=== PATIENT | female | born 1935 | race Caucasian/White ===

== ENCOUNTER 2017-10-22 21:00 | Inpatient (IN) | payer MEDICARE, BC ==
[2017-10-22 22:39] VITALS: BMI 22.4
[2017-10-22] MEDS ORDERED: HYDROcodone/APAP 10-325MG 1 EACH TAB PO PRN (23:37)
[2017-10-22] MEDS ORDERED: MORPHINE SULFATE 4 MG/ML SYRINGE IVP PRN ×2 (23:38)
--- NOTE | 2017-10-23 00:09 | XR ---
EXAMINATION TYPE: XR chest 1V portable DATE OF EXAM: 10/22/2017 COMPARISON: NONE HISTORY: Preop knee fracture TECHNIQUE: Single frontal view of the chest is obtained. FINDINGS: Heart is normal. Lungs are clear. There is no heart failure. Thoracic aorta is atheromatou s. There is no pleural effusion. There are emphysematous changes in the upper lobes. IMPRESSION: Emphysema. No acute lung disease. Normal heart.
[2017-10-23 00:15] LABS: Basophils % (A) 0 %; Eosinophils # (A) 0.1 k/uL (0-0.7); Eosinophils % (A) 1 %; HCT 33.2 % (34.0-46.0); HGB 11.6 gm/dL (11.4-16.0); Lymphocytes # (A) 0.6 k/uL (1.0-4.8); Lymphocytes % (A) 9 %; MCH 29.6 pg (25.0-35.0); MCHC 35.1 g/dL (31.0-37.0); MCV 84.3 fL (80.0-100.0); Mean Platelet Volume 6.6; Monocytes # (A) 0.4 k/uL (0-1.0); Monocytes % (A) 6 %; Neutrophils # (A) 5.4 k/uL (1.3-7.7); Neutrophils % (A) 82 %; Platelet Count 241 k/uL (150-450); RBC 3.93 m/uL (3.80-5.40); RDW 13.7 % (11.5-15.5); WBC 6.6 k/uL (3.8-10.6)
[2017-10-23 00:33] LABS: Calcium 9.3 mg/dL (8.4-10.2); Potassium 3.3 mmol/L (3.5-5.1)
[2017-10-23 00:34] LABS: INR 1.1 (<1.2); Partial Thromboplastin Time 22.3 sec (22.0-30.0); Prothrombin Time 10.3 sec (9.0-12.0)
[2017-10-23] MEDS: DEXTROSE 5%-0.9% NACL 1,000 ML IV SCH ×2 (00:59→11:36)
[2017-10-23] MEDS: METOPROLOL TARTRATE 50 MG TAB PO SCH ×2 (01:39→09:22)
[2017-10-23] MEDS: PRAVASTATIN SODIUM 40 MG TAB PO SCH ×2 (01:39→21:53)
[2017-10-23] MEDS: LOSARTAN 50 MG TAB PO SCH ×3 (01:39→21:53)
[2017-10-23] MEDS: LEVOTHYROXINE 75 MCG TAB PO SCH (05:05)
[2017-10-23] MEDS ORDERED: Potassium Replacement Protocol 1 EACH MISC MISCELLANE PRN (07:11)
[2017-10-23] MEDS: IPRATROPIUM-ALBUTEROL 3 ML NEB INHALATION SCH ×2 (07:28→19:37)
[2017-10-23] MEDS ORDERED: HYDROCHLOROTHIAZIDE 25 MG TAB PO SCH (09:00)
[2017-10-23] MEDS: POTASSIUM CHLORIDE ER 20 MEQ TAB.ER PO SCH ×2 (09:21→11:35)
[2017-10-23] MEDS: PANTOPRAZOLE 40 MG TABLET PO SCH (09:21)
--- NOTE | 2017-10-23 09:27 | P.HPIM ---
History of Present Illness H&P Date: 10/23/17 Chief Complaint: Fall 81-year-old female who originally presented to [facility] after she sustained a fall at home. She was transferred to [facility] on 10/22/2017. The patient lives alone and is independent. She states she has been losing power on and off for the past week. She states her cable and phone were out when all of a sudden she heard "Evacuate Immediately". It is unknown what exactly this message was about or where it came from. Patient does not know if her cable came back on at that time and if it came from the TV. She states she usually would exit out of her garage but was unable to do so because of the power being out. She states she left her house out of a side door which has two steps. She states she fell when she was on the second step and fell onto the ground. She began to have pain and swelling in her left knee and presented to the hospital for further evaluation. She was found to have a left tibial plateu fracture and was transferred to [facility] for orthopedic evaluation. The patient has a history of hypertension, hyperlipidemia, and hypothyroidism. Surgical history included thyroidectomy and hysterectomy with removal of her uterus only. Chest x-ray: Emphysema. No acute process. Laboratory data: WBC 6.6. Hemoglobin 11.6. Platelet count 241. Sodium 134. Potassium 3.3. Chloride 94. Carbon dioxide 28. BUN 9. Creatinine 0.80. Glucose 107. Calcium 9.3. The patient was admitted to the hospital under the care of Dr. Jerez. Consultations were placed to orthopedics. Review of Systems GENERAL: Patient denies fever. Denies chills. EYES: Denies blurred vision. Denies vision changes. Denies eye pain. EARS, NOSE, MOUTH, & THROAT: Denies headache. Denies sore throat. Denies ear pain. RESPIRATORY: Denies cough. Denies shortness of breath. Denies sputum production. Denies hemoptysis. CARDIOVASCULAR: Denies chest pain or pressure. Denies palpitations. Denies arrhythmias. GASTROINTESTINAL: Denies abdominal pain. Denies diarrhea. Denies constipation. Denies nausea. Denies vomiting. Denies heartburn. Denies blood in the stool. GENITOURINARY: Denies urinary frequency. Denies burning. Denies dysuria. Denies cloudy urine. Denies blood in the urine. MUSCULOSKELETAL: Positive for pain and swelling to left knee. Denies myalgias. INTEGUMENTARY: Denies pruitis. Denies rash. PSYCHIATRIC: Positive for intermittent memory loss per patient. Denies suicidal or homicial ideations. ENDOCRINE: Denies weight change. Denies polydipsia. Denies polyuria. HEMATOLOGIC: Denies bleeding disorders. Past Medical History Past Medical History: GERD/Reflux, Hyperlipidemia, Hypertension, Thyroid Disorder Additional Past Medical History / Comment(s): Emphysema, TGN History of Any Multi-Drug Resistant Organisms: None Reported Past Surgical History: Cholecystectomy, Hysterectomy Additional Past Surgical History / Comment(s): Thyroidectomy (left with 5 % of her thyroid), Hysterectomy (only removed uterus, cyst removal from left breast. Reports that during thyroid surgery, her surgeon left 6 clips in her throat. Never removed Past Anesthesia/Blood Transfusion Reactions: Previous Problems w/ Anesthesia Additional Past Anesthesia/Blood Transfusion Reaction / Comment(s): Patient reports having difficulty waking up from surgery Smoking Status: Former smoker - Past Family History Father Additional Family Medical History / Comment(s): Emphysema Medications and Allergies Home Medications Medication Instructions Recorded Confirmed Type Amitriptyline HCl [Amitriptyline 25 mg PO QAM 10/22/17 10/22/17 History HCl] Hydrochlorothiazide 25 mg PO QAM 10/22/17 10/22/17 History Levothyroxine Sodium [Synthroid] 75 mcg PO DAILY 10/22/17 10/22/17 History Losartan Potassium [Losartan 50 mg PO BID 10/22/17 10/22/17 History Potassium] Metoprolol Tartrate [Lopressor] 50 mg PO BID 10/22/17 10/22/17 History Omeprazole [PriLOSEC] 20 mg PO AC-BRKFST 10/22/17 10/22/17 History Perphenazine [Trilafon] 4 mg PO QAM 10/22/17 10/22/17 History Pravastatin Sodium [Pravachol] 40 mg PO HS 10/22/17 10/22/17 History Allergies Allergy/AdvReac Type Severity Reaction Status Date / Time codeine AdvReac Mild Unknown Verified 10/23/17 06:50 Physical Exam Vitals: Vital Signs Temp Pulse Pulse Resp BP Pulse Ox 10/23/17 07:41 71 10/23/17 07:29 71 10/23/17 00:45 98.6 F 87 13 135/76 97 10/22/17 23:00 18 Intake and Output 10/22/17 10/23/17 10/23/17 22:59 06:59 14:59 Other: # Voids 1 Weight 61.3 kg GENERAL: This is a 81-year-old female in no apparent distress at the time of examination. Pleasant and cooperative. HEENT: Head is atraumatic, normocephalic. Pupils are equal, round, and reactive to light. Sclerae anicteric. Conjunctivae are clear. Mucus membranes of the mouth are moist. Neck is supple. RESPIRATORY: Clear to ausculation. No wheezes, rales, or rhonchi. No use of accessory muscles. Patient maintaining oxygen saturation greater than 92%on room air. No chest wall tenderness is noted on palpation or with deep breathing. CARDIOVASCULAR: Regular rate and rhythm. S1 and S2 noted. No systolic or diastolic murmur auscultated. No JVD noted. No S3 or S4 noted. GASTROINTESTINAL: No distention noted. Abdomen soft and round. Normal active bowel sounds auscultated x 4 quadrants. No pain or tenderness noted upon palpation. INTEGUMENTARY: No cyanosis. No jaundice. No rashes noted. No cellulitis noted. EXTREMITIES: Left lower extremitity remains in brace. Mild swelling and ecchymosis noted to left anterior knee and proximal tibia. 2+ peripheral pulses. No calf tenderness noted. NEUROLOGIC: Cranial nerves II-XII intact. PSYCHIATRIC: Awake, alert, and oriented X 3. Appropriate affect. Intact judgement and insight. Results CBC & Chem 7: 10/23/17 00:02 10/23/17 00:02 Labs: Abnormal Lab Results - Last 24 Hours (Table) 10/23/17 10/23/17 Range/Units 00:02 00:02 Hct 33.2 L (34.0-46.0) % Lymphocytes # 0.6 L (1.0-4.8) k/uL Sodium 134 L (137-145) mmol/L Potassium 3.3 L (3.5-5.1) mmol/L Chloride 94 L (98-107) mmol/L Glucose 107 H (74-99) mg/dL Thrombosis Risk Factor Assmnt - Choose All That Apply Any of the Below Risk Factors Present?: Yes Assessment and Plan Plan: ASSESSMENT: Left tibial plateau fracture, s/p fall from standing Hypertension Hyperlipidemia Hypothyroidism with previous thyroidectomy Hypokalemia Hypomagnesemia PLAN: Orthopedics on consult. Await recommendations and input Maintain brace to left lower extremity. Elevate on pillow. NPO until evaluated by orthopedics. Continue IV fluids Replace potassium per protocol. Recheck in AM. Replace magnesium per protocol. Recheck in a.m. Home meds as appropriate Monitor labs GI prophylaxis: Protonix 40 mg PO Daily DVT prophylaxis: Heparin 5000 units subcu Q8 hours Monitor vital signs and address as appropriate Discharge planning: Patient states she is going to stay with her son at the time of discharge. Discussed the possibility of subacute rehab with the patient. Will obtain PT/OT consult when appropriate to evaluate patient Further recommendations pending patient's course Nurse practitioner note has been reviewed by physician. Signing provider agrees with the documented findings, assessment, and plan of care.
[2017-10-23] MEDS ORDERED: Magnesium Replacement Protocol 1 EACH MISC MISCELLANE PRN (10:32)
--- NOTE | 2017-10-23 10:43 | P.CNOR ---
History of Present Illness - [facility] Consult date: 10/23/17 Requesting physician: Abraham Saunders Consult reason: fracture (Left Proximal Tibia fracture) History of present illness: Patient is a pleasant 81-year-old seen at bedside this morning in consultation for her left tibia fracture. She originally presented to [facility] after she sustained a fall at home. She states she fell forward onto the ground and onto her knee as she was exiting her garage yesterday. She began to have pain and swelling in her left knee and presented to the hospital for further evaluation. Studies were performed at [facility] including a CT and Xray of the left knee. She was found to have a left tibial plateu fracture and was transferred to [facility] for orthopedic evaluation. She is admitted to her PCP. She has no other complaints today. She denies numbness, tingling, calf pain, fever, chills, chest pain or shortness of breath. Review of Systems All systems: negative Constitutional: Denies chills, Denies fever Eyes: denies blurred vision, denies pain Ears, nose, mouth and throat: Denies headache, Denies sore throat Cardiovascular: Denies chest pain, Denies shortness of breath Respiratory: Denies cough Gastrointestinal: Denies abdominal pain, Denies diarrhea, Denies nausea, Denies vomiting Genitourinary: Denies dysuria, Denies hematuria Musculoskeletal: Denies myalgias Integumentary: Denies pruritus, Denies rash Neurological: Denies numbness, Denies weakness Psychiatric: Denies anxiety, Denies depression Endocrine: Denies fatigue, Denies weight change Past Medical History Past Medical History: GERD/Reflux, Hyperlipidemia, Hypertension, Thyroid Disorder Additional Past Medical History / Comment(s): Emphysema, TGN History of Any Multi-Drug Resistant Organisms: None Reported Past Surgical History: Cholecystectomy, Hysterectomy Additional Past Surgical History / Comment(s): Thyroidectomy (left with 5 % of her thyroid), Hysterectomy (only removed uterus, cyst removal from left breast. Reports that during thyroid surgery, her surgeon left 6 clips in her throat. Never removed Past Anesthesia/Blood Transfusion Reactions: Previous Problems w/ Anesthesia Additional Past Anesthesia/Blood Transfusion Reaction / Comm: Patient reports having difficulty waking up from surgery Smoking Status: Former smoker - Past Family History Father Additional Family Medical History / Comment(s): Emphysema Medications and Allergies Home Medications Medication Instructions Recorded Confirmed Type Amitriptyline HCl [Amitriptyline 25 mg PO QAM 10/22/17 10/22/17 History HCl] Hydrochlorothiazide 25 mg PO QAM 10/22/17 10/22/17 History Levothyroxine Sodium [Synthroid] 75 mcg PO DAILY 10/22/17 10/22/17 History Losartan Potassium [Losartan 50 mg PO BID 10/22/17 10/22/17 History Potassium] Metoprolol Tartrate [Lopressor] 50 mg PO BID 10/22/17 10/22/17 History Omeprazole [PriLOSEC] 20 mg PO AC-BRKFST 10/22/17 10/22/17 History Perphenazine [Trilafon] 4 mg PO QAM 10/22/17 10/22/17 History Pravastatin Sodium [Pravachol] 40 mg PO HS 10/22/17 10/22/17 History Allergies Allergy/AdvReac Type Severity Reaction Status Date / Time codeine AdvReac Mild Unknown Verified 10/23/17 06:50 Physical Examination Inspection of the left knee and lower extremity shows no wounds or lacerations. There is moderate swelling at the left knee and proximal tibia. There is some echymosis. There is no erythema. It is not hot to touch. No deformity. Painless ROM of hip, ankle and foot. Knee ROM not tested. Neurovascular status is intact throughout the lower extremity with motor and sensation fully intact. Calf is soft and nontender. 2+ dorsalis pedis pulse and less than 2 second cap refill is present Results CT of the left knee performed at [facility] shows a minimally to nondisplaced proximal tibia/plateau fracture. There is no dislocation or other fracture. - Labs Labs: Abnormal Lab Results - Last 24 Hours (Table) 10/23/17 10/23/17 Range/Units 00:02 00:02 Hct 33.2 L (34.0-46.0) % Lymphocytes # 0.6 L (1.0-4.8) k/uL Sodium 134 L (137-145) mmol/L Potassium 3.3 L (3.5-5.1) mmol/L Chloride 94 L (98-107) mmol/L Glucose 107 H (74-99) mg/dL H & H 10/23/17 Range/Units 00:02 Hgb 11.6 (11.4-16.0) gm/dL Hct 33.2 L (34.0-46.0) % Coagulation 10/23/17 Range/Units 00:02 INR 1.1 (<1.2) Result Diagrams: 10/23/17 00:02 10/23/17 00:02 - Diagnostic results Knee x-ray: image reviewed Knee CT: image reviewed Assessment and Plan (1) Tibia fracture Narrative/Plan: Patient and studies have been reviewed with Dr. Saunders. There is no plan for surgical intervention. Recommend that she maintain knee immobilizer and be non weightbearing with left lower extremity. Pain management, elevate and ice as needed. DVT prophylaxis. She may follow up in our office in one week. She would benefit from rehab placement. Thank you Current Visit: Yes Status: Acute Priority: Medium Code(s): S82.209A - UNSP FRACTURE OF SHAFT OF UNSP TIBIA, INIT FOR CLOS FX SNOMED Code(s): 86075493 Time with Patient: Less than 30
[2017-10-23] MEDS: PERPHENAZINE 4 MG TAB PO SCH (11:35)
[2017-10-23] MEDS: AMITRIPTYLINE HCL 25 MG TAB PO SCH (11:35)
[2017-10-23] MEDS: MAGNESIUM SULFATE-D5W PMX 1 GM in DEXTROSE/WATER 1 100ML.BAG IVPB SCH ×2 (11:39→13:19)
[2017-10-23] MEDS ORDERED: POTASSIUM CHLORIDE ER 20 MEQ TAB.ER PO STA (12:59)
--- NOTE | 2017-10-23 16:28 | P.CONS ---
History of Present Illness - Chief Complaint Walking difficulty - History of Present Illness I had the opportunity to see patient for inpatient consultation with regard to walking difficulty. She was admitted to [facility] October 22 history of fall at home and left leg or knee pain. X-ray demonstrated tibial plateau fracture. Evaluated by Dr. Saunders recommended immobilizing knee only. Chest x-ray demonstrates emphysema. PT and OT prescribed. PT reports moderate assistance for bed mobility sitting and transfers. Minimal to moderate assistance for gait 2 feet with roller walker. previous functional history as elicited patient: 81-year-old right-handed white female who is lives in one floor home alone. Retired. Describes independent with cooking, laundry, driving, standing shower and gait without device. Has 2 sons who live nearby and visit daily. History smoking remote past but doesn't smoke currently. Denies alcohol. Dr. Jerez regular doctor. Family history of cancer in mother and emphysema in father. Review of Systems Review of systems: ENT: Denies sneezes or discharge. Eyes: Denies discharge or photophobia. Cardiac: Denies chest pain or palpitation. Pulmonary: Denies cough or shortness of breath. Breast: Denies discharge or lumps. Gastrointestinal: Denies nausea, emesis, constipation, diarrhea. Genitourinary: Denies discharge or frequency. Musculoskeletal: Left leg and knee pain. Neurologic: Denies motor or sensory change. Endocrine: Denies shakes or sweats. Oncology: Denies cancers. Dermatologic: Denies rash, itching, pruritus. ALLERGY/immunology: Denies sneezes, rashes. Past Medical History Past Medical History: GERD/Reflux, Hyperlipidemia, Hypertension, Thyroid Disorder Additional Past Medical History / Comment(s): Emphysema, TGN History of Any Multi-Drug Resistant Organisms: None Reported Past Surgical History: Cholecystectomy, Hysterectomy Additional Past Surgical History / Comment(s): Thyroidectomy (left with 5 % of her thyroid), Hysterectomy (only removed uterus, cyst removal from left breast. Reports that during thyroid surgery, her surgeon left 6 clips in her throat. Never removed Past Anesthesia/Blood Transfusion Reactions: Previous Problems w/ Anesthesia Additional Past Anesthesia/Blood Transfusion Reaction / Comm: Patient reports having difficulty waking up from surgery Smoking Status: Former smoker - Past Family History Father Additional Family Medical History / Comment(s): Emphysema Medications and Allergies Home Medications Medication Instructions Recorded Confirmed Type Amitriptyline HCl [Amitriptyline 25 mg PO QAM 10/22/17 10/22/17 History HCl] Hydrochlorothiazide 25 mg PO QAM 10/22/17 10/22/17 History Levothyroxine Sodium [Synthroid] 75 mcg PO DAILY 10/22/17 10/22/17 History Losartan Potassium [Losartan 50 mg PO BID 10/22/17 10/22/17 History Potassium] Metoprolol Tartrate [Lopressor] 50 mg PO BID 10/22/17 10/22/17 History Omeprazole [PriLOSEC] 20 mg PO AC-BRKFST 10/22/17 10/22/17 History Perphenazine [Trilafon] 4 mg PO QAM 10/22/17 10/22/17 History Pravastatin Sodium [Pravachol] 40 mg PO HS 10/22/17 10/22/17 History Allergies Allergy/AdvReac Type Severity Reaction Status Date / Time codeine AdvReac Mild Unknown Verified 10/23/17 06:50 Physical Exam Vitals: Vital Signs Temp Pulse Pulse Resp BP Pulse Ox 10/23/17 14:15 97.7 F 72 16 95/58 92 L 10/23/17 09:37 98.2 F 72 16 111/62 93 L 10/23/17 07:41 71 10/23/17 07:29 71 10/23/17 00:45 98.6 F 87 13 135/76 97 10/22/17 23:00 18 Intake and Output 10/23/17 10/23/17 10/23/17 06:59 14:59 22:59 Intake Total 1170 Balance 1170 Intake: Intake, IV Titration 550 Amount Dextrose 5%-0.9% NaCl 1, 450 000 ml @ 100 mls/hr IV . Q10H [facility] Rx#:[id number] Magnesium Sulfate-D5w Pmx 100 1 gm In Dextrose/Water 1 100ml.bag @ 100 mls/hr IVPB Q1H [facility] Rx#: [id number] Oral 620 Other: # Voids 1 Skin: Atrophic, intact. General: Medium build and comfortable appearance. Head: Normocephalic, atraumatic. Eyes: Symmetric. Pupils equal round. Ears: Symmetric. Hearing within normal limits. Mouth: Clear. Neck: Supple. Carotid without bruit. Cardiac: Regular rate and rhythm. Lungs: Clear anteriorly and posteriorly. Abdomen: Soft active nontender. Extremities: Normal tone. Left leg in immobilizer. Neurological: Mental status: Alert, cooperative, pleasant. Cranial nerves: Symmetric facial tone and trapezius. Motor: Normal strength and isolation all [address] weakness and left leg, does not elevate off the bed understandably. Sensation: Intact throughout. DTRs: Symmetric and equal throughout. Mobility: Would require moderate assistance for bed mobility, at least. Results CBC & Chem 7: 10/23/17 00:02 10/23/17 12:09 Labs: Abnormal Lab Results - Last 24 Hours (Table) 10/23/17 10/23/17 10/23/17 Range/Units 00:02 00:02 00:02 Hct 33.2 L (34.0-46.0) % Lymphocytes # 0.6 L (1.0-4.8) k/uL Sodium 134 L (137-145) mmol/L Potassium 3.3 L (3.5-5.1) mmol/L Chloride 94 L (98-107) mmol/L Glucose 107 H (74-99) mg/dL Magnesium 1.5 L (1.6-2.3) mg/dL Chest x-ray: report reviewed (Chest x-ray with emphysema only.) Assessment and Plan (1) Tibia fracture Current Visit: Yes Status: Acute Priority: Medium Code(s): S82.209A - UNSP FRACTURE OF SHAFT OF UNSP TIBIA, INIT FOR CLOS FX SNOMED Code(s): 48534427 Plan: Impression: 1. Walking difficulty. 2. Left tibial plateau fracture. 3. Hypertension. 4. Dyslipidemia. 5. Hypothyroid. 6. Reflux. comments and plan: PT and OT ordered. Safety concerns anticipated in no lives alone although does have 2 supportive sons in the area. Unsure the patient has. diagnosis inpatient rehabilitation per insurance rules and guidelines. Will have to review. In any event, patient has already discussed subacute placement at [facility] and for this in fact may be better placement for her at this time, allow her a slower course of recovery.
[2017-10-23 17:47] LABS: Appearance,Urine Cloudy (Clear); Bacteria,Urine Rare /hpf; Bilirubin,Urine Negative (Negative); Blood,Urine Negative (Negative); Color,Urine Light Yellow; Glucose,Urine (UA) Negative (Negative); Ketones,Urine Negative (Negative); Leukocyte Esterase,Urine Large (Negative); Nitrite,Urine Positive (Negative); Protein,Urine Negative (Negative); RBC,Urine 4 /hpf (0-5); Specific Gravity,Urine 1.006 (1.001-1.035); Squamous Epithelial Cell,Urine <1 /hpf (0-4); Urobilinogen,Urine <2.0 mg/dL (<2.0); WBC,Urine 177 /hpf (0-5)
[2017-10-23] MEDS: HEPARIN SODIUM,PORCINE 5,000 UNIT/ML 1 ML VIAL SQ SCH ×2 (17:51→23:30)
[2017-10-23] MEDS ORDERED: LEVOFLOXACIN 750MG-D5W PMX 750 MG in DEXTROSE/WATER 1 150ML.BAG IVPB SCH (20:00)
[2017-10-24] MEDS: LEVOTHYROXINE 75 MCG TAB PO SCH (05:21)
[2017-10-24 07:40] LABS: Calcium 8.9 mg/dL (8.4-10.2); Magnesium 1.7 mg/dL (1.6-2.3); Potassium 4.2 mmol/L (3.5-5.1)
[2017-10-24] MEDS: IPRATROPIUM-ALBUTEROL 3 ML NEB INHALATION SCH ×2 (08:18→20:17)
[2017-10-24] MEDS: LOSARTAN 50 MG TAB PO SCH ×2 (08:38→21:04)
[2017-10-24] MEDS: METOPROLOL TARTRATE 25 MG TAB PO SCH (08:39)
[2017-10-24] MEDS: AMITRIPTYLINE HCL 25 MG TAB PO SCH (08:39)
[2017-10-24] MEDS: PANTOPRAZOLE 40 MG TABLET PO SCH (08:39)
[2017-10-24] MEDS: HEPARIN SODIUM,PORCINE 5,000 UNIT/ML 1 ML VIAL SQ SCH ×2 (08:39→16:09)
[2017-10-24] MEDS: PERPHENAZINE 4 MG TAB PO SCH (08:40)
--- NOTE | 2017-10-24 08:56 | P.PN ---
Subjective Progress Note Date: 10/24/17 81-year-old female who originally presented to [facility] after she sustained a fall at home. She was transferred to [facility] on 10/22/2017. The patient lives alone and is independent. She states she has been losing power on and off for the past week. She states her cable and phone were out when all of a sudden she heard "Evacuate Immediately". It is unknown what exactly this message was about or where it came from. Patient does not know if her cable came back on at that time and if it came from the TV. She states she usually would exit out of her garage but was unable to do so because of the power being out. She states she left her house out of a side door which has two steps. She states she fell when she was on the second step and fell onto the ground. She began to have pain and swelling in her left knee and presented to the hospital for further evaluation. She was found to have a left tibial plateu fracture and was transferred to [facility] for orthopedic evaluation. The patient has a history of hypertension, hyperlipidemia, and hypothyroidism. Surgical history includes thyroidectomy and hysterectomy with removal of her uterus only. Chest x-ray: Emphysema. No acute process. Laboratory data: WBC 6.6. Hemoglobin 11.6. Platelet count 241. Sodium 134. Potassium 3.3. Chloride 94. Carbon dioxide 28. BUN 9. Creatinine 0.80. Glucose 107. Calcium 9.3. The patient was admitted to the hospital under the care of Dr. Jerez. Consultations were placed to orthopedics. 10/24/2017 Patient seen and examined at the bedside. Dr. Jerez spoke with patients family yesterday who stated they thought the patient may be having syncopal episodes and had been complaining of dizziness, neither of which the patient reported yesterday in interviewing the patient. When patient was asked about this today, she states "Oh yeah, I have been been dizzy for about a week" and "its possible I passed out when I fell". Patient now reveals she has been feeling dizzy for the last week. Carotid doppler has been ordered. Urinalysis completed revealed cloudy light yellow urine, positive nitrates, large leukocyte esterase, WBC 177 , and few WBC clumps. Urine culture is pending. She was started on Levaquin 750mg IV Q24 hours. Patient was borderline hypotensive yesterday with systolic blood pressures in the 90s. Her metoprolol was decreased to 25mg daily from 50mg BID. Blood pressure this morning is 129/63. Heart rate 70-90s. Temp this morning is 99.9. Dr. Davidson was consulted to evaluate for inpatient rehab. Patient states she does not want to go to inpatient rehab or subacute rehab. She states she is going to go home and her sister is going to come stay with her and help care for her. Objective - Vital Signs Vital signs: Vital Signs Temp 99.9 F H 10/24/17 07:00 Pulse 76 10/24/17 08:18 Resp 17 10/24/17 07:00 BP 129/63 10/24/17 07:00 Pulse Ox 93 L 10/24/17 07:00 Intake & Output 10/23/17 10/24/17 10/24/17 18:59 06:59 18:59 Intake Total 1350 Output Total 100 Balance 1350 -100 Intake: Intake, IV Titration 550 Amount Dextrose 5%-0.9% NaCl 1, 450 000 ml @ 100 mls/hr IV . Q10H [facility] Rx#:[id number] Magnesium Sulfate-D5w Pmx 100 1 gm In Dextrose/Water 1 100ml.bag @ 100 mls/hr IVPB Q1H [facility] Rx#: [id number] Oral 800 Output: Urine 100 Other: Voiding Method Bedside Commode # Voids 1 - Exam GENERAL: This is a 81-year-old female in no apparent distress at the time of examination. Pleasant and cooperative. HEENT: Head is atraumatic, normocephalic. Pupils are equal, round, and reactive to light. Sclerae anicteric. Conjunctivae are clear. Mucus membranes of the mouth are moist. Neck is supple. RESPIRATORY: Clear to ausculation. No wheezes, rales, or rhonchi. No use of accessory muscles. Patient maintaining oxygen saturation greater than 92%on room air. No chest wall tenderness is noted on palpation or with deep breathing. CARDIOVASCULAR: Regular rate and rhythm. S1 and S2 noted. No systolic or diastolic murmur auscultated. No JVD noted. No S3 or S4 noted. GASTROINTESTINAL: No distention noted. Abdomen soft and round. Normal active bowel sounds auscultated x 4 quadrants. No pain or tenderness noted upon palpation. INTEGUMENTARY: No cyanosis. No jaundice. No rashes noted. No cellulitis noted. EXTREMITIES: Left lower extremitity remains in brace. Mild swelling and ecchymosis noted to left anterior knee and proximal tibia. 2+ peripheral pulses. No calf tenderness noted. NEUROLOGIC: Cranial nerves II-XII intact. PSYCHIATRIC: Awake, alert, and oriented X 3. Appropriate affect. Intact judgement and insight. - Labs CBC & Chem 7: 10/23/17 00:02 10/24/17 07:02 Labs: Abnormal Lab Results - Last 24 Hours (Table) 10/22/17 10/23/17 10/23/17 Range/Units 17:40 00:02 19:51 Sodium (137-145) mmol/L Potassium 5.2 H (3.5-5.1) mmol/L Magnesium 1.5 L (1.6-2.3) mg/dL Urine Appearance Cloudy H (Clear) Urine Nitrite Positive H (Negative) Ur Leukocyte Esterase Large H (Negative) Urine WBC 177 H (0-5) /hpf Urine WBC Clumps Few H (None) /hpf Urine Bacteria Rare H (None) /hpf 10/24/17 Range/Units 07:02 Sodium 136 L (137-145) mmol/L Potassium (3.5-5.1) mmol/L Magnesium (1.6-2.3) mg/dL Urine Appearance (Clear) Urine Nitrite (Negative) Ur Leukocyte Esterase (Negative) Urine WBC (0-5) /hpf Urine WBC Clumps (None) /hpf Urine Bacteria (None) /hpf Assessment and Plan Plan: ASSESSMENT: Left tibial plateau fracture, s/p fall from standing, may be secondary to syncope Syncopal episode, carotid doppler pending Urinary tract infection, present on admission, urine culture pending Hypotension, may be secondary to early sepsis related to urinary tract infection , improved with IV hydration Hypertension Hyperlipidemia Hypothyroidism with previous thyroidectomy Hypokalemia, improved with supplementation Hypomagnesemia, improved with supplementation PLAN: Orthopedics on consult. Appreciate recommendations and input Maintain brace to left lower extremity. Elevate on pillow. Await urine culture results Continue Levaquin Obtain carotid doppler Home meds as appropriate Monitor labs GI prophylaxis: Protonix 40 mg PO Daily DVT prophylaxis: Heparin 5000 units subcu Q8 hours Monitor vital signs and address as appropriate Discharge planning: Patient refusing inpatient rehab or subacute rehab at this time. She states she is going home and her sister is going to stay with her to help care for her. Further recommendations pending patient's course Nurse practitioner note has been reviewed by physician. Signing provider agrees with the documented findings, assessment, and plan of care.
--- NOTE | 2017-10-24 10:56 | US ---
EXAMINATION TYPE: US carotid duplex BILAT DATE OF EXAM: 10/24/2017 COMPARISON: NONE CLINICAL HISTORY: Syncope . Syncope, weakness EXAM MEASUREMENTS: RIGHT: Peak Systolic Velocity (PSV) cm/sec ----- Right CCA: 83.4 ----- Right ICA: 167.3 ----- Right ECA: 149.5 ICA/CCA ratio: 2.0 RIGHT: End Diastole cm/sec ----- Right CCA: 19.7 ----- Right ICA: 23.5 ----- Right ECA: 13.6 LEFT: Peak Systolic Velocity (PSV) cm/sec ----- Left CCA: 93.8 ----- Left ICA: 124.2 ----- Left ECA: 176.3 ICA/CCA ratio: 1.3 LEFT: End Diastole cm/sec ----- Left CCA: 23.7 ----- Left ICA: 27.3 ----- Left ECA: 13.7 VERTEBRALS (direction of flow): Right Vertebral: Antegrade Left Vertebral: Antegrade Heterogeneous plaque bilaterally with elevated velocities bilateral ECA's and right ICA IMPRESSION: 1. Heterogeneous plaque bilaterally with findings suggestive of a 50-69% stenosis involving the pro ximal right ICA. Correlate with CTA as clinically warranted. Criteria for Assigning % of Stenosis / Diameter reduction (Estimation based on the indirect measurements of the internal carotid artery velocities (ICA PSV). 1. Normal (no stenosis)=ICA PSV < 125 cm/s: ratio < 2.0: ICA EDV<40 cm/s. 2. Less than 50% stenosis=ICA PSV < 125 cm/s: ratio < 2.0: ICA EDV<40 cm/s. 3. 50 to 69% stenosis=ICA PSV of 125 to 230 cm/s: ration 2.0 ? 4.0: ICA EDV 40-100 cm/s. 4. Greater than 70% stenosis to near occlusion= ICA PSV > 230 cm/s: ratio > 4.0: ICA EDV > 100 cm/s. 5. Near occlusion= ICA PSV velocities may be low or undetectable: variable ratio and ICA EDV. 6. Total occlusion=unable to detect flow.
[2017-10-24] MEDS ORDERED: MORPHINE ORAL SOLN 10 MG/5 ML CUP PO PRN ×2 (11:59→12:00)
[2017-10-24] MEDS: ASPIRIN 81 MG PO SCH (14:46)
[2017-10-24] MEDS ORDERED: LEVOFLOXACIN 750 MG TAB PO SCH (20:00)
[2017-10-24] MEDS: PRAVASTATIN SODIUM 40 MG TAB PO SCH (21:04)
[2017-10-25 00:04] LABS: Cholesterol 130 mg/dL (<200); HDL Cholesterol 43 mg/dL (40-60); LDL Cholesterol,Calculated 71 mg/dL (0-99); Triglycerides 80 mg/dL (<150)
[2017-10-25 01:54] VITALS: TEMP 98.2
[2017-10-25] MEDS: HEPARIN SODIUM,PORCINE 5,000 UNIT/ML 1 ML VIAL SQ SCH ×2 (04:45→09:22)
[2017-10-25] MEDS: LEVOTHYROXINE 75 MCG TAB PO SCH (06:14)
[2017-10-25 07:09] VITALS: BP 137/74; RESP 14
[2017-10-25] MEDS: IPRATROPIUM-ALBUTEROL 3 ML NEB INHALATION SCH (08:57)
[2017-10-25 09:10] VITALS: PULSE 92
[2017-10-25] MEDS: PERPHENAZINE 4 MG TAB PO SCH (09:15)
[2017-10-25] MEDS: ASPIRIN 81 MG PO SCH (09:15)
[2017-10-25] MEDS: METOPROLOL TARTRATE 25 MG TAB PO SCH (09:15)
[2017-10-25] MEDS: LOSARTAN 50 MG TAB PO SCH (09:15)
[2017-10-25] MEDS: AMITRIPTYLINE HCL 25 MG TAB PO SCH (09:15)
[2017-10-25] MEDS: PANTOPRAZOLE 40 MG TABLET PO SCH (09:15)
--- NOTE | 2017-10-25 10:30 | P.DS ---
Providers Date of admission: 10/22/17 22:21 Expected date of discharge: 10/25/17 Attending physician: David Jerez Consults: 10/22/17 23:34 Consult Physician Routine Consulting Provider: Winston Leone Consult Reason/Comments: Left Tibial Fracture Do you want consulting provider notified?: Yes Placement Type Exists?: Yes 10/23/17 13:43 Consult Physician Routine Consulting Provider: Timur Davidson Consult Reason/Comments: evaluate for IP rehab Do you want consulting provider notified?: Yes Primary care physician: Stated None Hospital Course: 81-year-old female who originally presented to [facility] after she sustained a fall at home. She was transferred to [facility] on 10/22/2017. The patient lives alone and is independent. She states she has been losing power on and off for the past week. She states her cable and phone were out when all of a sudden she heard "Evacuate Immediately". It is unknown what exactly this message was about or where it came from. Patient does not know if her cable came back on at that time and if it came from the TV. She states she usually would exit out of her garage but was unable to do so because of the power being out. She states she left her house out of a side door which has two steps. She states she fell when she was on the second step and fell onto the ground. She began to have pain and swelling in her left knee and presented to the hospital for further evaluation. She was found to have a left tibial plateu fracture and was transferred to [facility] for orthopedic evaluation. The patient has a history of hypertension, hyperlipidemia, and hypothyroidism. Surgical history includes thyroidectomy and hysterectomy with removal of her uterus only. Chest x-ray: Emphysema. No acute process. Laboratory data: WBC 6.6. Hemoglobin 11.6. Platelet count 241. Sodium 134. Potassium 3.3. Chloride 94. Carbon dioxide 28. BUN 9. Creatinine 0.80. Glucose 107. Calcium 9.3. The patient was admitted to the hospital under the care of Dr. Jerez. Consultations were placed to orthopedics. Dr. Jerez spoke with patients family who stated they thought the patient may be having syncopal episodes and had been complaining of dizziness, neither of which the patient reported yesterday in interviewing the patient. When patient was asked about this today, she states "Oh yeah, I have been been dizzy for about a week" and "its possible I passed out when I fell". Patient now reveals she has been feeling dizzy for the last week. Carotid ultrasound reveals heterogeneous plaque bilaterally with findings suggestive of 50-69% stenosis involving the proximal right internal carotid artery. Patient is on Pravachol 40mg at HS. Aspirin 81mg has been added to her regimen. Urinalysis completed revealed cloudy light yellow urine, positive nitrates, large leukocyte esterase, WBC 177, and few WBC clumps. Urine culture is pending. Patient was borderline hypotensive yesterday with systolic blood pressures in the 90s. Her metoprolol was decreased to 25mg daily from 50mg BID. Her blood pressure is now running in the 130s with a heart rate 90-100s. She will be prescribed metroprolol 25mg PO BID. PT/OT was ordered. The patient is refusing subacute rehab. She is to be discharged home with home care. She states her sister is going to home stay with her and help care for her. She also has two sons who are available to help. Orthopedics evaluated the patient and no surgical intervention was recommended. She is to continue to wear her brace to the left lower extremity. She is to be nonweightbearing on the left lower extremity. The patient was deemed stable for discharge per Dr. Jerez. Prescriptions were sent to the patient's preferred pharmacy for aspirin 81 mg daily, Levaquin 750 mg daily 3 days, and metoprolol 25 mg by mouth twice a day. The patient was given a prescription for 10 tablets of [place] 5/325mg to be taken PRN for pain. DISCHARGE DIAGNOSIS: Left tibial plateau fracture, s/p fall from standing, may be secondary to syncope Syncopal episode, carotid doppler reveals heterogeneous plaque bilaterally with findings suggestive of 50-69% stenosis involving the proximal right internal carotid artery, likely due to hypotension Urinary tract infection, present on admission, urine culture pending Hypotension, may be secondary to early sepsis related to urinary tract infection , improved with IV hydration Hypertension Hyperlipidemia Hypothyroidism with previous thyroidectomy Hypokalemia, improved with supplementation Hypomagnesemia, improved with supplementation Nurse practitioner note has been reviewed by physician. Signing provider agrees with the documented findings, assessment, and plan of care. Patient Condition at Discharge: Stable Plan - Discharge Summary Discharge Rx Participant: No New Discharge Prescriptions: New Aspirin 81 mg PO DAILY #30 chew Levofloxacin [Levaquin] 750 mg PO DAILY 3 Days #3 tab Metoprolol Tartrate [Lopressor] 25 mg PO BID #60 tablet HYDROcodone/APAP 5-325MG [[place] 5] 1 each PO Q6HR PRN #10 tab PRN Reason: Pain Continue Perphenazine [Trilafon] 4 mg PO QAM Levothyroxine Sodium [Synthroid] 75 mcg PO DAILY Hydrochlorothiazide 25 mg PO QAM Losartan Potassium 50 mg PO BID Pravastatin Sodium [Pravachol] 40 mg PO HS Omeprazole [PriLOSEC] 20 mg PO -[facility] Amitriptyline HCl 25 mg PO QAM Discontinued Metoprolol Tartrate [Lopressor] 50 mg PO BID Discharge Medication List Amitriptyline HCl 25 mg PO QAM 10/22/17 [History] Hydrochlorothiazide 25 mg PO QAM 10/22/17 [History] Levothyroxine Sodium [Synthroid] 75 mcg PO DAILY 10/22/17 [History] Losartan Potassium 50 mg PO BID 10/22/17 [History] Omeprazole [PriLOSEC] 20 mg PO AC-BRKFST 10/22/17 [History] Perphenazine [Trilafon] 4 mg PO QAM 10/22/17 [History] Pravastatin Sodium [Pravachol] 40 mg PO HS 10/22/17 [History] Aspirin 81 mg PO DAILY #30 chew 10/25/17 [Rx] HYDROcodone/APAP 5-325MG [[place] 5] 1 each PO Q6HR PRN #10 tab 10/25/17 [Rx] Levofloxacin [Levaquin] 750 mg PO DAILY 3 Days #3 tab 10/25/17 [Rx] Metoprolol Tartrate [Lopressor] 25 mg PO BID #60 tablet 10/25/17 [Rx] Follow up Appointment(s)/Referral(s): Brijesh Maciel PAC [PHYSICIAN DIRECTOR REGULATORY AGENCY] - 1 Week David Jerez MD [STAFF PHYSICIAN] - 3 Days Abraham Saunders MD [STAFF PHYSICIAN] - 1 Week Activity/Diet/Wound Care/Special Instructions: non weightbearing maintain knee immobilizer f/u with Dr. Luisa Saunders or Brijesh Maciel PA-C in approximately one week. Ice and elevate left leg Discharge Disposition: HOME WITH HOME HEALTH SERVICES
== END 2017-10-25 13:00 | disposition home health service (06) | DRG 563 ==
LOC: 3SUR 22:21
PROVIDERS: ADMIT Family Medicine; ATTEND Family Medicine
DX: S82.142A Displaced bicondylar fracture of left tibia, initial encounter for closed fracture (principal); N39.0 Urinary tract infection, site not specified; W10.8XXA Fall (on) (from) other stairs and steps, initial encounter; I10 Essential (primary) hypertension; J43.9 Emphysema, unspecified; E78.5 Hyperlipidemia, unspecified; E89.0 Postprocedural hypothyroidism; K21.9 Gastro-esophageal reflux disease without esophagitis; E87.6 Hypokalemia; E83.42 Hypomagnesemia; I65.21 Occlusion and stenosis of right carotid artery; R55 Syncope and collapse; I95.9 Hypotension, unspecified; Z60.2 Problems related to living alone; Z90.711 Acquired absence of uterus with remaining cervical stump; Y92.007 Garden or yard of unspecified non-institutional (private) residence as the place of occurrence of the external cause; Z87.891 Personal history of nicotine dependence; Z82.5 Family history of asthma and other chronic lower respiratory diseases; Z79.890 Hormone replacement therapy; Z79.899 Other long term (current) drug therapy; Z88.5 Allergy status to narcotic agent
CPT/HCPCS: 71045; 80048; 80061; 81001; 83735; 84132; 85025; 85610; 85730; 87077; 87086; 87186; 93005; 93880; 94640

== ENCOUNTER 2017-11-16 13:05 | Inpatient (IN) | payer MEDICARE, BC ==
--- NOTE | 2017-11-16 13:37 | ED ---
General Adult HPI - General Chief complaint: Weakness Stated complaint: Right lower chest discomfort Time Seen by Provider: 11/16/17 13:28 Source: patient, family, EMS, RN notes reviewed Mode of arrival: EMS Limitations: no limitations - History of Present Illness Initial comments: Patient is a pleasant 81-year-old female presenting to the emergency department with right lower chest/rib discomfort. Onset was 2 days ago. Discomfort is present with deep breaths. No discomfort otherwise. Patient denies any dyspnea. Patient has had a cough recently that has now started to improve. Patient does have a history of similar symptoms previously associated with pleurisy. No rash. No fever. Patient does have a history of fracture just below her left knee approximately 4 weeks ago. Patient is an knee immobilizer. - Related Data Home Medications Medication Instructions Recorded Confirmed Amitriptyline HCl 25 mg PO QAM 10/22/17 11/16/17 Hydrochlorothiazide 25 mg PO QAM 10/22/17 11/16/17 Levothyroxine Sodium [Synthroid] 75 mcg PO DAILY 10/22/17 11/16/17 Losartan Potassium 50 mg PO BID 10/22/17 11/16/17 Omeprazole [PriLOSEC] 20 mg PO AC-BRKFST 10/22/17 11/16/17 Perphenazine [Trilafon] 4 mg PO QAM 10/22/17 11/16/17 Pravastatin Sodium [Pravachol] 40 mg PO HS 10/22/17 11/16/17 Previous Rx's Medication Instructions Recorded Aspirin 81 mg PO DAILY #30 chew 10/25/17 HYDROcodone/APAP 5-325MG [[place] 5] 1 each PO Q6HR PRN #10 tab 10/25/17 Metoprolol Tartrate [Lopressor] 25 mg PO BID #60 tablet 10/25/17 Allergies Allergy/AdvReac Type Severity Reaction Status Date / Time codeine AdvReac Mild sore throat Verified 11/16/17 13:30 Review of Systems ROS Statement: Those systems with pertinent positive or pertinent negative responses have been documented in the HPI. ROS Other: All systems not noted in ROS Statement are negative. Constitutional: Denies: fever Eyes: Denies: eye pain ENT: Denies: ear pain Respiratory: Reports: cough. Denies: dyspnea Cardiovascular: Reports: chest pain (Right lower lateral ribs) Endocrine: Denies: fatigue Gastrointestinal: Denies: abdominal pain Genitourinary: Denies: dysuria Musculoskeletal: Denies: back pain Skin: Denies: rash Neurological: Denies: headache Past Medical History Past Medical History: GERD/Reflux, Hyperlipidemia, Hypertension, Thyroid Disorder Additional Past Medical History / Comment(s): Emphysema, TGN History of Any Multi-Drug Resistant Organisms: None Reported Past Surgical History: Cholecystectomy, Hysterectomy Additional Past Surgical History / Comment(s): Thyroidectomy (left with 5 % of her thyroid), Hysterectomy (only removed uterus, cyst removal from left breast. Reports that during thyroid surgery, her surgeon left 6 clips in her throat. Never removed Past Anesthesia/Blood Transfusion Reactions: Previous Problems w/ Anesthesia Additional Past Anesthesia/Blood Transfusion Reaction / Comment(s): Patient reports having difficulty waking up from surgery Past Psychological History: Anxiety Smoking Status: Former smoker Past Alcohol Use History: None Reported Past Drug Use History: None Reported - Past Family History Father Additional Family Medical History / Comment(s): Emphysema General Exam Limitations: no limitations General appearance: alert, in no apparent distress Head exam: Present: atraumatic Eye exam: Present: normal appearance, PERRL ENT exam: Present: normal oropharynx Neck exam: Present: normal inspection Respiratory exam: Present: normal lung sounds bilaterally, chest wall tenderness (Patient does have mild tenderness to the right lower lateral ribs. No rash.) Cardiovascular Exam: Present: regular rate, normal rhythm Expanded Peripheral pulses: 2+: Radial (R), Radial (L), Dorsalis Pedis (R), Dorsalis Pedis (L) GI/Abdominal exam: Present: soft. Absent: distended, tenderness Extremities exam: Present: normal inspection. Absent: pedal edema, calf tenderness Back exam: Present: normal inspection. Absent: CVA tenderness (R) Neurological exam: Present: alert Psychiatric exam: Present: normal affect, normal mood Skin exam: Present: normal color Course Vital Signs 11/16/17 11/16/17 11/16/17 13:10 13:38 14:25 Temperature 98.5 F Pulse Rate 88 86 88 Respiratory 18 Rate Blood Pressure 121/58 130/60 120/62 O2 Sat by Pulse 96 98 98 Oximetry EKG Findings - EKG Comments: EKG Findings:: Normal sinus rhythm 89. SC 146. QRS 74. QT 34. QTC 467. Left axis. Normal QRS. No acute ST change. Medical Decision Making - Medical Decision Making Patient reevaluated. Patient and son are updated on results and plan. Dr. Jerez has been paged for admission of his patient. - Lab Data Result diagrams: 11/16/17 13:19 11/16/17 13:19 Lab Results 11/16/17 11/16/17 11/16/17 Range/Units 13:19 13:19 13:19 WBC 9.8 (3.8-10.6) k/uL RBC 3.97 (3.80-5.40) m/uL Hgb 11.7 (11.4-16.0) gm/dL Hct 34.4 (34.0-46.0) % MCV 86.7 (80.0-100.0) fL MCH 29.5 (25.0-35.0) pg MCHC 34.0 (31.0-37.0) g/dL RDW 14.6 (11.5-15.5) % Plt Count 278 (150-450) k/uL Neutrophils % 82 % Lymphocytes % 9 % Monocytes % 8 % Eosinophils % 0 % Basophils % 0 % Neutrophils # 8.0 H (1.3-7.7) k/uL Lymphocytes # 0.8 L (1.0-4.8) k/uL Monocytes # 0.7 (0-1.0) k/uL Eosinophils # 0.0 (0-0.7) k/uL Basophils # 0.0 (0-0.2) k/uL PT (9.0-12.0) sec INR (<1.2) APTT (22.0-30.0) sec Sodium 134 L (137-145) mmol/L Potassium 3.8 (3.5-5.1) mmol/L Chloride 96 L (98-107) mmol/L Carbon Dioxide 26 (22-30) mmol/L Anion Gap 12 mmol/L BUN 16 (7-17) mg/dL Creatinine 0.80 (0.52-1.04) mg/dL Est GFR (CKD-EPI)AfAm 80 (>60 ml/min/1.73 sqM) Est GFR (CKD-EPI)NonAf 70 (>60 ml/min/1.73 sqM) Glucose 102 H (74-99) mg/dL Calcium 8.8 (8.4-10.2) mg/dL Magnesium 1.5 L (1.6-2.3) mg/dL Total Bilirubin 1.1 (0.2-1.3) mg/dL AST 25 (14-36) U/L ALT 25 (9-52) U/L Alkaline Phosphatase 50 (38-126) U/L Total Creatine Kinase <20 L (30-135) U/L CK-MB (CK-2) 0.3 (0.0-2.4) ng/mL CK-MB (CK-2) Rel Index Troponin I <0.012 (0.000-0.034) ng/mL Total Protein 6.0 L (6.3-8.2) g/dL Albumin 3.2 L (3.5-5.0) g/dL 11/16/17 Range/Units 13:19 WBC (3.8-10.6) k/uL RBC (3.80-5.40) m/uL Hgb (11.4-16.0) gm/dL Hct (34.0-46.0) % MCV (80.0-100.0) fL MCH (25.0-35.0) pg MCHC (31.0-37.0) g/dL RDW (11.5-15.5) % Plt Count (150-450) k/uL Neutrophils % % Lymphocytes % % Monocytes % % Eosinophils % % Basophils % % Neutrophils # (1.3-7.7) k/uL Lymphocytes # (1.0-4.8) k/uL Monocytes # (0-1.0) k/uL Eosinophils # (0-0.7) k/uL Basophils # (0-0.2) k/uL PT 10.3 (9.0-12.0) sec INR 1.1 (<1.2) APTT 22.8 (22.0-30.0) sec Sodium (137-145) mmol/L Potassium (3.5-5.1) mmol/L Chloride (98-107) mmol/L Carbon Dioxide (22-30) mmol/L Anion Gap mmol/L BUN (7-17) mg/dL Creatinine (0.52-1.04) mg/dL Est GFR (CKD-EPI)AfAm (>60 ml/min/1.73 sqM) Est GFR (CKD-EPI)NonAf (>60 ml/min/1.73 sqM) Glucose (74-99) mg/dL Calcium (8.4-10.2) mg/dL Magnesium (1.6-2.3) mg/dL Total Bilirubin (0.2-1.3) mg/dL AST (14-36) U/L ALT (9-52) U/L Alkaline Phosphatase (38-126) U/L Total Creatine Kinase (30-135) U/L CK-MB (CK-2) (0.0-2.4) ng/mL CK-MB (CK-2) Rel Index Troponin I (0.000-0.034) ng/mL Total Protein (6.3-8.2) g/dL Albumin (3.5-5.0) g/dL - Radiology Data Radiology results: report reviewed (CT angios chest does show right lower lobe segmental and subsegmental pulmonary emboli.), image reviewed (Chest x-ray shows no acute process) Critical Care Time Critical Care Time: Yes Total Critical Care Time: 33 Disposition Clinical Impression: Pulmonary embolism Disposition: ADMITTED IP TO THIS HOSP Is patient prescribed a controlled substance at d/c from ED?: No Referrals: David Jerez MD [Primary Care Provider] - 1-2 days Decision Time: 16:27
[2017-11-16 14:02] LABS: Albumin 3.2 g/dL (3.5-5.0); Calcium 8.8 mg/dL (8.4-10.2); Magnesium 1.5 mg/dL (1.6-2.3); Potassium 3.8 mmol/L (3.5-5.1); Total Bilirubin 1.1 mg/dL (0.2-1.3)
[2017-11-16 14:13] LABS: Basophils % (A) 0 %; Eosinophils % (A) 0 %; HCT 34.4 % (34.0-46.0); HGB 11.7 gm/dL (11.4-16.0); Lymphocytes # (A) 0.8 k/uL (1.0-4.8); Lymphocytes % (A) 9 %; MCH 29.5 pg (25.0-35.0); MCV 86.7 fL (80.0-100.0); Mean Platelet Volume 7.2; Monocytes # (A) 0.7 k/uL (0-1.0); Monocytes % (A) 8 %; Neutrophils % (A) 82 %; Platelet Count 278 k/uL (150-450); RBC 3.97 m/uL (3.80-5.40); RDW 14.6 % (11.5-15.5); WBC 9.8 k/uL (3.8-10.6)
[2017-11-16 14:14] LABS: Creatine Kinase <20 U/L (30-135); INR 1.1 (<1.2); Partial Thromboplastin Time 22.8 sec (22.0-30.0); Prothrombin Time 10.3 sec (9.0-12.0)
[2017-11-16 14:26] LABS: Creatine Kinase MB 0.3 ng/mL (0.0-2.4); Troponin I <0.012 ng/mL (0.000-0.034)
--- NOTE | 2017-11-16 14:36 | XR ---
EXAMINATION TYPE: XR chest 2V DATE OF EXAM: 11/16/2017 COMPARISON: Prior chest 10/22/2017, 11/16/2017 and earlier time HISTORY: Chest pain TECHNIQUE: Frontal and lateral views of the chest are obtained. FINDINGS: There is no focal air space opacity, pleural effusion, or pneumothorax seen. The cardiac silhouette size is within normal limits. Prominent lung volumes suggest underlying COPD, emphysema. S urgical clips present in the upper abdomen. The aorta is dense. The osseous structures are intact. T here are overlying cardiac leads. IMPRESSION: No acute cardiopulmonary process.
[2017-11-16] MEDS ORDERED: SODIUM CHLORIDE 0.9% 1,000 ML IV STA (14:37)
[2017-11-16] MEDS ORDERED: MAGNESIUM OXIDE 400 MG TAB PO STA (14:39)
--- NOTE | 2017-11-16 16:15 | CT ---
EXAMINATION TYPE: CT angio chest DATE OF EXAM: 11/16/2017 COMPARISON: NONE HISTORY: Shortness of breath CT DLP: 138.2 mGycm. Automated Exposure Control for Dose Reduction was Utilized. CONTRAST: CTA scan of the thorax is performed with IV Contrast, patient injected with 75 mL of Isovue 370, pulm onary embolism protocol. MIP Images are created on CT scanner and reviewed. FINDINGS: LUNGS: There are extensive panlobular bullous emphysematous changes throughout the lungs most proxima l within the lung apices. Right basilar subsegmental atelectasis is noted. No triangular-shaped pulmo nary infarct is seen at this time. Multifocal areas of pleural-parenchymal scarring are also noted. N o pulmonary mass is identified. MEDIASTINUM: There is satisfactory enhancement of the pulmonary artery and its branches. Segmental an d subsegmental filling defects of the right lower lobe represent acute emboli. There is subsequent en largement of the right main pulmonary artery measuring 2.5 cm. Main pulmonary artery also measures 2. 5 cm and is nonenlarged. Ascending thoracic aorta measures 3.0 cm and is also nonenlarged. Few questi onable filling defects of the left lower lobe also seen in the subsegmental pulmonary arteries. The r ight ventricle to left ventricular ratio is not greater than 1 and is not abnormal. Minimal coronary artery calcifications are seen. Heart is not enlarged. There is a trace pericardial effusion evident. There is no reflux of contrast into the inferior vena cava and hepatic veins. There are no greater t house 1 cm hilar or mediastinal lymph nodes. No cardiomegaly. OTHER: Gallbladder is surgically absent. Mild multilevel degenerative changes of the thoracic spine a re noted. Probable area of focal fatty infiltration is seen in segment 4A the liver near the fissure for the falciform ligament. IMPRESSION: 1. Segmental and subsegmental pulmonary emboli to the right lower lobe and equivocal subsegmental pul monary emboli to the left lower lobe. Right main pulmonary artery is dilated however no other evidenc e of right heart strain are seen. Right basilar atelectasis is seen with no current evidence of pulmo nary infarct. Findings communicating with the ordering physician Dr. Goyal at 1612 on 11/16/[address] Calix. 2. Trace pericardial effusion. 3. Extensive bullous emphysema.
[2017-11-16] MEDS ORDERED: HEPARIN SODIUM,PORCINE 5,000 UNIT/ML 1 ML VIAL IV ONE (16:25)
[2017-11-16] MEDS ORDERED: HEPARIN SODIUM,PORCINE 5,000 UNIT/ML 1 ML VIAL IV PRN (16:25)
[2017-11-16] MEDS ORDERED: NALOXONE 0.4 MG/ML 1 ML VIAL IV PRN (16:28)
[2017-11-16] MEDS ORDERED: ACETAMINOPHEN TAB 325 MG TAB PO PRN (16:28)
[2017-11-16] MEDS: HEPARIN SODIUM,PORCINE/D5W PMX 25,000 UNIT in DEXTROSE/WATER 1 500ML.BAG IV SCH (16:36)
[2017-11-16 17:51] LABS: Appearance,Urine Cloudy (Clear); Bacteria,Urine Rare /hpf; Bilirubin,Urine Negative (Negative); Blood,Urine Negative (Negative); Color,Urine Yellow; Glucose,Urine (UA) Negative (Negative); Ketones,Urine Trace (Negative); Leukocyte Esterase,Urine Small (Negative); Mucus,Urine Rare /hpf; Nitrite,Urine Negative (Negative); Protein,Urine Trace (Negative); Squamous Epithelial Cell,Urine 1 /hpf (0-4); WBC,Urine 16 /hpf (0-5)
--- NOTE | 2017-11-16 19:11 | XR ---
EXAMINATION TYPE: XR tibia fibula LT DATE OF EXAM: 11/16/2017 CLINICAL HISTORY: Left ankle fracture progress study. TECHNIQUE: Two views of the left leg are obtained. COMPARISON: CT left leg October 22, 2017 FINDINGS: There is overlying cast material seen which is noted to lower radiographic sensitivity for the evaluation of fine anatomic detail. Demineralization is present. There is persistent lucency cons istent with nondisplaced comminuted fracture through the proximal tibial meta-epiphysis seen best on lateral view anteriorly. No new fractures are clearly seen. Alignment is stable. IMPRESSION: As above.
[2017-11-16] MEDS: FAMOTIDINE 20 MG TAB PO SCH (20:51)
[2017-11-17 07:25] LABS: Basophils % (A) 0 %; Eosinophils # (A) 0.1 k/uL (0-0.7); Eosinophils % (A) 1 %; HCT 31.4 % (34.0-46.0); HGB 10.4 gm/dL (11.4-16.0); Lymphocytes # (A) 0.6 k/uL (1.0-4.8); Lymphocytes % (A) 11 %; MCHC 33.1 g/dL (31.0-37.0); MCV 87.6 fL (80.0-100.0); Mean Platelet Volume 6.7; Monocytes # (A) 0.5 k/uL (0-1.0); Monocytes % (A) 8 %; Neutrophils # (A) 4.3 k/uL (1.3-7.7); Neutrophils % (A) 77 %; Platelet Count 222 k/uL (150-450); RBC 3.59 m/uL (3.80-5.40); RDW 14.6 % (11.5-15.5); WBC 5.6 k/uL (3.8-10.6)
[2017-11-17 07:55] LABS: INR 1.1 (<1.2)
[2017-11-17 08:01] LABS: Partial Thromboplastin Time 110.7 sec (22.0-30.0)
[2017-11-17] MEDS: FAMOTIDINE 20 MG TAB PO SCH ×2 (08:16→20:03)
[2017-11-17] MEDS ORDERED: HYDROcodone/APAP 5-325MG 1 EACH TAB PO PRN (09:18)
--- NOTE | 2017-11-17 09:53 | P.CNOR ---
History of Present Illness - [facility] Consult date: 11/17/17 Consult reason: fracture History of present illness: Patient has very pleasant 81-year-old female who is seen and examined today at bedside. We are asked to see her in regards to follow-up for her left tibia fracture. She is admitted to the hospital currently due to new pulmonary embolus and some shortness of breath. She is being treated actively for her pulmonary emboli. She says her breathing is doing well area and she is using a nasal cannula and is not having any shortness of breath. She is conversant. She sustained an injury of her left knee on October 22 when she was walking out of her house and stumbled and fell onto her knees. She was seen in consultation and was found have a nondisplaced proximal tibia fracture. She has been treated with a knee immobilizer and conservative management. She is remained in the knee immobilizer over the past few weeks and remain nonweightbearing as well. She says her knee is not giving her any pain at all. She has not been taking any medications in regards to her knee. She denies any new injury. Review of Systems She was having some shortness of breath that brought her into the emergency room yesterday. She is having some discomfort with deep breathing. She denies any chest pain. She says her knee is feeling well. She is not having any numbness tingling in her lower extremity. She did not have any undue swelling in her lower legs. Past Medical History Past Medical History: GERD/Reflux, Hyperlipidemia, Hypertension, Pneumonia, Thyroid Disorder Additional Past Medical History / Comment(s): Emphysema, TGN , uti, past pleurisylow bp, 5-8-18 fell/fx lt knee wearing immobilzer. NO WEIGHT BEARING ON LT LEG. pt stated has ahd a pne vaccine not sure of date. writer editor unable to verify date at time of this admit. History of Any Multi-Drug Resistant Organisms: None Reported Past Surgical History: Cholecystectomy, Hysterectomy Additional Past Surgical History / Comment(s): Thyroidectomy (left with 5 % of her thyroid), Hysterectomy (only removed uterus, cyst removal from left breast. Reports that during thyroid surgery, her surgeon left 6 clips in her throat. Never removed Past Anesthesia/Blood Transfusion Reactions: Previous Problems w/ Anesthesia Additional Past Anesthesia/Blood Transfusion Reaction / Comm: Patient reports having difficulty waking up from surgery Past Psychological History: Anxiety Additional Psychological History / Comment(s): pt currentlystaying withher son. unable to ambulate. no weight bearing on lt leg Smoking Status: Former smoker Past Alcohol Use History: None Reported Additional Past Alcohol Use History / Comment(s): started smoking 1966 and quit 1991, smoked 2 ppd. Past Drug Use History: None Reported - Past Family History Father Additional Family Medical History / Comment(s): Emphysema Mother Family Medical History: Cancer Additional Family Medical History / Comment(s): colon cancer mets to liver Medications and Allergies Home Medications Medication Instructions Recorded Confirmed Type Amitriptyline HCl 25 mg PO QAM 10/22/17 11/16/17 History Hydrochlorothiazide 25 mg PO QAM 10/22/17 11/16/17 History Levothyroxine Sodium [Synthroid] 75 mcg PO DAILY 10/22/17 11/16/17 History Losartan Potassium 50 mg PO BID 10/22/17 11/16/17 History Omeprazole [PriLOSEC] 20 mg PO AC-BRKFST 10/22/17 11/16/17 History Perphenazine [Trilafon] 4 mg PO QAM 10/22/17 11/16/17 History Pravastatin Sodium [Pravachol] 40 mg PO HS 10/22/17 11/16/17 History Aspirin 81 mg PO DAILY #30 chew 10/25/17 11/16/17 Rx HYDROcodone/APAP 5-325MG [Kellogg 5] 1 each PO Q6HR PRN #10 tab 10/25/17 11/16/17 Rx Metoprolol Tartrate [Lopressor] 25 mg PO BID #60 tablet 10/25/17 11/16/17 Rx Allergies Allergy/AdvReac Type Severity Reaction Status Date / Time codeine AdvReac Mild sore throat Verified 11/16/17 13:30 Physical Examination Osteopathic Statement: *. No significant issues noted on an osteopathic structural exam other than those noted in the History and Physical/Consult. - Knee left Tenderness with palpation: anterior (There is no effusion at her knee. She has been minimal pain with palpation over her anterior proximal tibia. There is no gross swelling. There is some ecchymosis around her knee. Her calf is soft her thigh is soft there is negative Leah's. She has good motion in her ankle. She has some stiffness at her left knee with motion. The knee immobilizer is reapplied.) Results - Labs Labs: Abnormal Lab Results - Last 24 Hours (Table) 11/16/17 11/16/17 11/16/17 Range/Units 13:19 13:19 13:19 RBC (3.80-5.40) m/uL Hgb (11.4-16.0) gm/dL Hct (34.0-46.0) % Neutrophils # 8.0 H (1.3-7.7) k/uL Lymphocytes # 0.8 L (1.0-4.8) k/uL APTT (22.0-30.0) sec Sodium 134 L (137-145) mmol/L Chloride 96 L (98-107) mmol/L Glucose 102 H (74-99) mg/dL Magnesium 1.5 L (1.6-2.3) mg/dL Total Creatine Kinase <20 L (30-135) U/L Total Protein 6.0 L (6.3-8.2) g/dL Albumin 3.2 L (3.5-5.0) g/dL Urine Appearance (Clear) Urine Protein (Negative) Urine Ketones (Negative) Ur Leukocyte Esterase (Negative) Urine WBC (0-5) /hpf Urine Bacteria (None) /hpf Urine Mucus (None) /hpf 11/16/17 11/16/17 11/17/17 Range/Units 17:27 22:25 06:51 RBC (3.80-5.40) m/uL Hgb (11.4-16.0) gm/dL Hct (34.0-46.0) % Neutrophils # (1.3-7.7) k/uL Lymphocytes # (1.0-4.8) k/uL APTT 166.7 H* 110.7 H* (22.0-30.0) sec Sodium (137-145) mmol/L Chloride (98-107) mmol/L Glucose (74-99) mg/dL Magnesium (1.6-2.3) mg/dL Total Creatine Kinase (30-135) U/L Total Protein (6.3-8.2) g/dL Albumin (3.5-5.0) g/dL Urine Appearance Cloudy H (Clear) Urine Protein Trace H (Negative) Urine Ketones Trace H (Negative) Ur Leukocyte Esterase Small H (Negative) Urine WBC 16 H (0-5) /hpf Urine Bacteria Rare H (None) /hpf Urine Mucus Rare H (None) /hpf 11/17/17 Range/Units 06:51 RBC 3.59 L (3.80-5.40) m/uL Hgb 10.4 L (11.4-16.0) gm/dL Hct 31.4 L (34.0-46.0) % Neutrophils # (1.3-7.7) k/uL Lymphocytes # 0.6 L (1.0-4.8) k/uL APTT (22.0-30.0) sec Sodium (137-145) mmol/L Chloride (98-107) mmol/L Glucose (74-99) mg/dL Magnesium (1.6-2.3) mg/dL Total Creatine Kinase (30-135) U/L Total Protein (6.3-8.2) g/dL Albumin (3.5-5.0) g/dL Urine Appearance (Clear) Urine Protein (Negative) Urine Ketones (Negative) Ur Leukocyte Esterase (Negative) Urine WBC (0-5) /hpf Urine Bacteria (None) /hpf Urine Mucus (None) /hpf Microbiology - Last 24 Hours (Table) 11/16/17 17:27 Urine Culture - Preliminary Urine,Clean Catch H & H 11/16/17 11/17/17 Range/Units 13:19 06:51 Hgb 11.7 10.4 L (11.4-16.0) gm/dL Hct 34.4 31.4 L (34.0-46.0) % Coagulation 18 11/17/17 Range/Units 13:19 06:51 INR 1.1 1.1 (<1.2) Result Diagrams: 11/17/17 06:51 11/16/17 13:19 - Diagnostic results Knee x-ray: report reviewed, image reviewed (We obtained x-rays of her tibia and fibula here in Hospital. This shows a minimally displaced fracture at the proximal tibial tubercle into the proximal tibia. The joint line appears to be intact there is no evidence of dislocation. There is no significant change from her prior film done 3 weeks ago.) Assessment and Plan Assessment: Left proximal tibia fracture which appears to be healing appropriately Left knee immobilizer intact with neurovascular intact Pulmonary emboli In regards to the patient's leg, her fracture is approximately 3 weeks into her conservative treatment process. The proximal tibia fracture appears to be healing appropriately and she should continue with her knee immobilizer. She should maintain nonweightbearing status on her left lower extremity. She is scheduled to follow-up with Dr. MOROCHO and I think this is appropriate for her to be intact with management on an outpatient basis. From an orthopedic standpoint is okay for the patient be discharged home when she is stable with medicine. The patient is being actively managed for her pulmonary emboli. She seems to be doing well with this. Her breathing is doing well and her pain is resolving. She should continue her medical management per medicine. Plan: Left proximal tibia fracture which appears to be healing appropriately Left knee immobilizer intact with neurovascular intact Pulmonary emboli In regards to the patient's leg, her fracture is approximately 3 weeks into her conservative treatment process. The proximal tibia fracture appears to be healing appropriately and she should continue with her knee immobilizer. She should maintain nonweightbearing status on her left lower extremity. She is scheduled to follow-up with Dr. MOROCHO and I think this is appropriate for her to be intact with management on an outpatient basis. From an orthopedic standpoint is okay for the patient be discharged home when she is stable with medicine. The patient is being actively managed for her pulmonary emboli. She seems to be doing well with this. Her breathing is doing well and her pain is resolving. She should continue her medical management per medicine
[2017-11-17] MEDS: HYDROCHLOROTHIAZIDE 25 MG TAB PO SCH (10:08)
[2017-11-17] MEDS: LEVOTHYROXINE 75 MCG TAB PO SCH (10:08)
[2017-11-17] MEDS: LOSARTAN 50 MG TAB PO SCH ×2 (10:08→20:03)
[2017-11-17] MEDS: AMITRIPTYLINE HCL 25 MG TAB PO SCH (10:08)
[2017-11-17] MEDS: ASPIRIN 81 MG PO SCH (10:08)
[2017-11-17] MEDS: PERPHENAZINE 4 MG TAB PO SCH (10:09)
[2017-11-17] MEDS: METOPROLOL TARTRATE 25 MG TAB PO SCH ×2 (10:09→20:02)
--- NOTE | 2017-11-17 11:14 | HP ---
HISTORY AND PHYSICAL This is a pleasant 81-year-old white female who came to the emergency room with right lower rib and chest discomfort going on for several days. The discomfort had occurred for a several-day period of time and pain and discomfort were progressive enough and this time with shortness of breath that she was brought into the hospital. She has a history of pleurisy in the past and she has been at [facility] several times with this type of admission. CT scan and have been negative in the past also. What is interesting enough this time is that she has a fracture in the left knee tibia which is basically [id number] in a knee immobilizer, which has decreased her activity tremendously. Very active lady. MEDICATIONS UPON ADMISSION: 1. Amitriptyline 25 mg daily. 2. Hydrochlorothiazide 25 daily. 3. Levothroid 75 daily. 4. Losartan 50 b.i.d. 5. Omeprazole 20 with breakfast. 6. Trilafon 4 mg in the morning. 7. Pravachol 40 mg daily. 8. Aspirin 81. 9. Occasional hydrocodone 5/325 for her knee fracture. 10.Lopressor 25 twice a day. ALLERGIES: NONE. REVIEW OF SYSTEMS: EYES: She has no problem seeing. ENT: She has had a dry mouth but no ear pain. RESPIRATORY: She has had the chest pain with inspiration. She has had no cough. The pain is on the right side. CARDIOVASCULAR: No palpitations other chest pain, squeezing type. No shortness of breath. No paroxysmal nocturnal dyspnea but has had exertional dyspnea. ENDOCRINE: She has had no fatigue. No problems with thyroid in the past. GI: No hematemesis. No hematochezia. No abdominal pain. No diarrhea. No constipation. : She has no problems with urination. MUSCULOSKELETAL: She has lower back pain that has been progressive, but she works through it and takes Tylenol occasionally with it. Her left knee: She has a fracture of the proximal tibia which is comminuted but is being treated closed. SKIN: She has no rashes. NEUROLOGICAL: She has had some dizziness lately. PAST MEDICAL HISTORY: 1. Severe hypertension. 2. GERD. 3. Hyperlipidemia. 4. Euthyroid. 5. Some mild COPD. HISTORY OF ANY [id number] ORGANISMS: None. PAST SURGICAL HISTORY: 1. Cholecystectomy. 2. Hysterectomy. 3. She also had a thyroidectomy which left her 5% of her thyroid. 4. She had a cyst removed from the left breast. PAST ANESTHESIA/BLOOD TRANSFUSION REACTIONS: Patient has had no problems with anesthesia or blood transfusions. PSYCHOLOGICAL: She has a history of anxiety, which has been well controlled but mostly related with hypertension. SOCIAL HISTORY: SMOKING: She is a former smoker. She has not smoked in over 30 years. ALCOHOL USE: None. Her last year and so she is adjusting to her new life. At this time she is living in the house of her son Rajiv. PHYSICAL EXAMINATION: Alert white female. PSYCHIATRIC: She is having no problems with her psychiatric presence. Her vital signs today show a blood pressure of 146/64, heart rate in the 80s, respiratory rate 16, temperature 98.1. EYES: Pupils are equal, round, reactive to light and accommodation. ENT: Tympanic membranes were negative. Throat is dry. Dentition appears to be normal. NECK: Supple. She has a scar on her neck from previous thyroidectomy. No palpable masses. Negative carotid bruit. CHEST: Essentially clear but she does have pain on the right side with deep breaths. I do not hear a pleural rub. HEART: Sinus rhythm with no murmur. ABDOMEN: Soft, nontender with no organomegaly. No palpable masses. LOWER EXTREMITIES: She has an extension brace on her left knee indicative of caring for her fracture of the proximal tibia. Negative Jessica bilaterally. LABORATORY TODAY: Her WBC is 5.6. Her hemoglobin is 10.4. She is on heparin. Please refer to her indices. Her chem-17 is within normal limits. Her urine is normal. ASSESSMENT: 1. Acute pulmonary emboli, right lower lung and left lower lung on CT scan of the lungs. 2. Essential hypertension which is severe, well controlled. 3. History of hyperlipidemia. 4. History of moderately severe anxiety/neurosis, at present grieving state, status post passing away within the last year. 5. Adjustment disorder, stable. 6. Euthyroid. 7. Gastroesophageal reflux. PLAN: Continue with the heparin for another day and then tomorrow we will switch her over to Eliquis with the chance of her going home within the next few days. Her prognosis is good. Time spent with ladmarisa and the nurse Deidre was well over 30 minutes. MMODL / IJN: [id number] /
[2017-11-17] MEDS ORDERED: HEPARIN SODIUM,PORCINE 5,000 UNIT/ML 1 ML VIAL IV PRN (15:24)
[2017-11-17] MEDS: HEPARIN SODIUM,PORCINE/D5W PMX 25,000 UNIT in DEXTROSE/WATER 1 500ML.BAG IV SCH (15:56)
[2017-11-17] MEDS: PRAVASTATIN SODIUM 40 MG TAB PO SCH (20:03)
[2017-11-18] MEDS: LEVOTHYROXINE 75 MCG TAB PO SCH (05:34)
[2017-11-18 07:28] LABS: Basophils % (A) 0 %; Eosinophils # (A) 0.1 k/uL (0-0.7); Eosinophils % (A) 2 %; HCT 31.1 % (34.0-46.0); HGB 10.5 gm/dL (11.4-16.0); Lymphocytes # (A) 0.6 k/uL (1.0-4.8); Lymphocytes % (A) 11 %; MCH 29.4 pg (25.0-35.0); MCHC 33.7 g/dL (31.0-37.0); MCV 87.4 fL (80.0-100.0); Mean Platelet Volume 6.7; Monocytes # (A) 0.3 k/uL (0-1.0); Monocytes % (A) 5 %; Neutrophils # (A) 4.8 k/uL (1.3-7.7); Neutrophils % (A) 80 %; Platelet Count 232 k/uL (150-450); RBC 3.56 m/uL (3.80-5.40); RDW 14.8 % (11.5-15.5)
[2017-11-18 07:37] LABS: INR 1.1 (<1.2); Partial Thromboplastin Time 65.7 sec (22.0-30.0); Prothrombin Time 10.6 sec (9.0-12.0)
[2017-11-18] MEDS: LOSARTAN 50 MG TAB PO SCH ×2 (07:51→20:28)
[2017-11-18] MEDS: FAMOTIDINE 20 MG TAB PO SCH ×2 (07:51→20:27)
[2017-11-18] MEDS: METOPROLOL TARTRATE 25 MG TAB PO SCH ×2 (07:51→20:31)
[2017-11-18] MEDS: PERPHENAZINE 4 MG TAB PO SCH (07:51)
[2017-11-18] MEDS: HYDROCHLOROTHIAZIDE 25 MG TAB PO SCH (07:52)
[2017-11-18] MEDS: AMITRIPTYLINE HCL 25 MG TAB PO SCH (07:52)
[2017-11-18] MEDS: ASPIRIN 81 MG PO SCH (07:52)
[2017-11-18] MEDS: AMOXIC-POT CLAV 875-125MG 1 EACH TAB PO SCH ×2 (10:58→20:27)
--- NOTE | 2017-11-18 11:16 | P.PN ---
Progress Note - Text Progress Note Date: 11/18/17 The patient is seen and examined at bedside. She has no new complaints. She is not complaining of pain at her knee. Her knee immobilizer is intact. On exam the left lower extremity immobilizer is intact. She has minimal tenderness to palpation at her knee. She has some pain with flexion-extension due to stiffness. Her thigh and calf are soft nontender. She has sustained dorsal flexion plantarflexion and EHL intact. Assessment and plan Left tibial plateau fracture minimally displaced due to fall approximately 3 weeks ago The patient is being treated for her tibial plateau fracture conservatively with a knee immobilizer which has been doing well thus far. She should remain nonweightbearing left lower extremity and should continue with her knee immobilizer. It is okay from us orthopedic standpoint for her to be discharged home when she is stable with medicine. She should follow-up with Dr. HUTSON next week for recheck evaluation. She should keep the knee immobilizer intact and remain nonweightbearing on left lower extremity. I discussed this with her and answered her questions she is agreeable.
[2017-11-18] MEDS: APIXABAN 5 MG TAB PO SCH ×2 (11:19→16:54)
--- NOTE | 2017-11-18 12:01 | PN ---
PROGRESS NOTE Ingrid is feeling quite well. She did have an episode of depression this morning early, but feels much better about now. No true anxiety. She had a fairly restful night. Again, this is an 81-year-old white female from the emergency room with right lower chest pain and discomfort going on for several days that worsened over 24 hours. The shortness of breath was worse especially with inspiration and she had a previous history of pleurisy and multiple admissions with that type of pain over the last several years. CT scans x2 of the lungs were negative in the past for PE. She also has a deep left proximal tibial fracture and is in a knee immobilizer that was evaluated here by Dr. Cesario dempsey and patient is doing well. It is healing well and at this point, she was found to have a pulmonary emboli that is being treated into day 3 with heparin. Her medications at this time is amitriptyline 25 daily, chlorothiazide 25 daily, levothyroxine 75 daily, losartan 50 b.i.d., omeprazole 20 with breakfast, Trilafon 4 mg in the morning. Pravachol 40 daily, aspirin 81 daily, hydrocodone 5-325 for knee facture p.r.n. pain and Lopressor 25 daily. Review of systems are negative. Microbiology today has shown the growth of enterococcus greater than 100,000 in her urine, suspected to be probably Proteus mirabilis, but still awaiting finalization. REVIEW OF SYSTEMS: Again, PSYCHIATRIC: She had period of tearing this morning and feelings sorry for herself. She is doing fine now. EYES: She has no problems seeing. ENT: Shows dry mouth. No pain. RESPIRATORY: She says she has chest pain with inspiration, mostly on the right side. Really no cough. No true shortness of breath at this time. CARDIOVASCULAR: No palpitations, no squeezing-type of chest pain. No shortness of breath at this period of pain. No proximal nocturnal dyspnea. No orthopnea. ENDOCRINE: She has no fatigue. She has been euthyroid in the past with previous partial thyroidectomy. : Has been no problem with urination. GI: No hematemesis, melena or hematochezia. No diarrhea. No constipation. MUSCULOSKELETAL: She does have lower back pain, has been progressively worsening over a period time. She takes Tylenol for that. She also has left knee fracture that is in an extension brace and no weightbearing. SKIN: No rashes. NEUROLOGICALLY: She has dizziness from time to time. PHYSICAL EXAMINATION: Blood pressure is 140/70, heart rate is in the 90s, respiratory rate is 18, temperature is 98.6, and oxygen is at 2 L nasal cannula 96. EYES: Pupils are equal, round, react to light accommodation. ENT: Showed tympanic membranes and pharynx to be negative. NECK: Supple. Midline trachea. CHEST: Essentially clear to auscultation. She does have some pain with inspiration. No palpable chest masses. HEART: Sinus rhythm with no murmur. No evidence of integumentary skin lesions of abnormality. ABDOMEN: Soft, nontender with no organomegaly. No palpable masses. LOWER EXTREMITIES: No swelling noted. Negative DVT. She does have an extension brace and a fair amount of swelling on her left knee with some minimal pain the proximal tibial palpation. Good lower extremity pulses. ALLERGY: Negative. ENDOCRINE: Just a scar in her neck secondary from previous thyroidectomy. ASSESSMENT: 1. Acute pulmonary emboli both right and left lower lung on CT scan of the lung with hypoxia. 2. Essential hypertension. 3. Hyperlipidemia. 4. Moderate severe anxiety and depression which seems to be stable and adjustment disorder. 5. Euthyroid. 6. Gastroesophageal reflux. 7. Acute urinary tract infection with group D enterococcus. PLAN: At this point of view, we are going to change her antibiotics over the Augmentin 875 b.i.d. and also DC the Rocephin and switch her over to Eliquis 10 mg to be taken twice a day for 7 days followed by 5 mg b.i.d. thereafter. We will slowly begin to increase activity and hopefully can wean her off oxygenation. She is supposed to also be nonweightbearing still in that left knee fracture with possible discharge in the a.m. MMODL / IJN: [id number] /
[2017-11-18] MEDS: PRAVASTATIN SODIUM 40 MG TAB PO SCH (20:32)
[2017-11-19] MEDS: LEVOTHYROXINE 75 MCG TAB PO SCH (06:15)
[2017-11-19 06:18] VITALS: BP 139/65; PULSE 91; RESP 16; TEMP 97.5
[2017-11-19 07:35] LABS: Basophils % (A) 0 %; Eosinophils # (A) 0.1 k/uL (0-0.7); Eosinophils % (A) 1 %; HCT 30.4 % (34.0-46.0); HGB 10.4 gm/dL (11.4-16.0); Lymphocytes # (A) 0.7 k/uL (1.0-4.8); Lymphocytes % (A) 10 %; MCH 29.7 pg (25.0-35.0); MCHC 34.3 g/dL (31.0-37.0); MCV 86.6 fL (80.0-100.0); Mean Platelet Volume 6.6; Monocytes # (A) 0.4 k/uL (0-1.0); Monocytes % (A) 6 %; Neutrophils # (A) 5.3 k/uL (1.3-7.7); Neutrophils % (A) 82 %; Platelet Count 239 k/uL (150-450); RBC 3.51 m/uL (3.80-5.40); RDW 14.9 % (11.5-15.5); WBC 6.5 k/uL (3.8-10.6)
[2017-11-19 07:41] LABS: INR 1.2 (<1.2); Prothrombin Time 11.1 sec (9.0-12.0)
[2017-11-19] MEDS: LOSARTAN 50 MG TAB PO SCH (08:25)
[2017-11-19] MEDS: FAMOTIDINE 20 MG TAB PO SCH (08:25)
[2017-11-19] MEDS: AMITRIPTYLINE HCL 25 MG TAB PO SCH (08:25)
[2017-11-19] MEDS: APIXABAN 5 MG TAB PO SCH (08:25)
[2017-11-19] MEDS: PERPHENAZINE 4 MG TAB PO SCH (08:25)
[2017-11-19] MEDS: AMOXIC-POT CLAV 875-125MG 1 EACH TAB PO SCH (08:25)
[2017-11-19] MEDS: METOPROLOL TARTRATE 25 MG TAB PO SCH (08:25)
[2017-11-19] MEDS: ASPIRIN 81 MG PO SCH (08:25)
[2017-11-19] MEDS: HYDROCHLOROTHIAZIDE 25 MG TAB PO SCH (08:26)
--- NOTE | 2017-11-19 10:14 | P.DS ---
Providers Date of admission: 11/16/17 16:28 Expected date of discharge: 11/19/17 Attending physician: David Jerez Consults: 11/16/17 16:29 Consult Physician Routine Consulting Provider: Winston Hutson Consult Reason/Comments: tibia fracture Do you want consulting provider notified?: Yes Primary care physician: David Jerez [facility] Course: 81-year-old female who presented to the emergency room on 11/16/2017 with right lower rib and chest discomfort ongoing for several days. The discomfort had occurred for a several day period of time and pain and discomfort were progressive and off and this time with shortness of breath that she was brought into the hospital. She has a history of pleurisy in the past and she has been at [facility] several times with this type of admission. Computed tomography scan has also been negative in the past also with interesting enough this time is that she has a fracture in the left knee tibia which is based nonweightbearing in a knee immobilizer, which has decreased her activity tremendously. She was found to have bilateral pulmonary embolus. She was started on a heparin drip. This was sent discontinued and the patient was started on anticoagulation with Eliquis. Her regimen is 10 mg twice daily for one week then 5 mg twice daily thereafter. A prescription was sent to the patient's preferred pharmacy and she was also given prescription card for one free month of Eliquis. The patient was also found to have a urinary tract infection during hospitalization. Urine culture is positive for group D enterococcus. She is receiving Augmentin twice daily. The patient was deemed stable for discharge per Dr. Jerez. She is to follow up on an outpatient basis. Prescriptions were sent to the patient's preferred pharmacy for Augmentin twice daily for 7 days along with Eliquis as described in the regimen above. DISCHARGE DIAGNOSIS: Acute pulmonary emboli, right lower lung and left lower lung on computed tomography scan Acute urinary tract infection with group D enterococcus Essential hypertension Hyperlipidemia History of moderately severe anxiety/neurosis, at present remain state, status post passing away within the last year Adjustment disorder, stable, Euthyroid Gastroesophageal reflux disease Nurse practitioner note has been reviewed by physician. Signing provider agrees with the documented findings, assessment, and plan of care. Plan - Discharge Summary Discharge Rx Participant: No New Discharge Prescriptions: New Amoxic-Pot Clav 875-125Mg [Augmentin 875-125] 1 each PO Q12HR #14 tab Apixaban [Eliquis] 5 mg PO BID #70 tab Continue Perphenazine [Trilafon] 4 mg PO QAM Levothyroxine Sodium [Synthroid] 75 mcg PO DAILY Hydrochlorothiazide 25 mg PO QAM Losartan Potassium 50 mg PO BID Pravastatin Sodium [Pravachol] 40 mg PO HS Omeprazole [PriLOSEC] 20 [facility] Amitriptyline HCl 25 mg PO QAM Aspirin 81 mg PO DAILY #30 chew Metoprolol Tartrate [Lopressor] 25 mg PO BID #60 tablet HYDROcodone/APAP 5-325MG [[place] 5-325] 1 each PO Q6HR PRN #10 tab PRN Reason: Pain Discharge Medication List Amitriptyline HCl 25 mg PO QAM 10/22/17 [History] Hydrochlorothiazide 25 mg PO QAM 10/22/17 [History] Levothyroxine Sodium [Synthroid] 75 mcg PO DAILY 10/22/17 [History] Losartan Potassium 50 mg PO BID 10/22/17 [History] Omeprazole [PriLOSEC] 20 mg PO AC-BRKFST 10/22/17 [History] Perphenazine [Trilafon] 4 mg PO QAM 10/22/17 [History] Pravastatin Sodium [Pravachol] 40 mg PO HS 10/22/17 [History] Aspirin 81 mg PO DAILY #30 chew 10/25/17 [Rx] HYDROcodone/APAP 5-325MG [[place] 5-325] 1 each PO Q6HR PRN #10 tab 10/25/17 [Rx] Metoprolol Tartrate [Lopressor] 25 mg PO BID #60 tablet 10/25/17 [Rx] Amoxic-Pot Clav 875-125Mg [Augmentin 875-125] 1 each PO Q12HR #14 tab 11/19/17 [ Rx] Apixaban [Eliquis] 5 mg PO BID #70 tab 11/19/17 [Rx] Follow up Appointment(s)/Referral(s): Winston Hutson DO [Doctor of Osteopathic Medicine] - 11/26/17 2:00 pm (Please have the nurse call for appointment with [facility] for her proximal tibia fracture) David Jerez MD [Primary Care Provider] - 11/27/17 1:30 pm Activity/Diet/Wound Care/Special Instructions: Keep left knee immobilizer intact. May remove for bathing. Nonweightbearing left lower extremity Discharge Disposition: HOME SELF-CARE
== END 2017-11-19 10:00 | disposition home or self-care (01) | DRG 176 ==
LOC: EC 13:05 → 5MS5E 16:28
PROVIDERS: ADMIT Family Medicine; ATTEND Family Medicine
DX: I26.99 Other pulmonary embolism without acute cor pulmonale (principal); S82.142A Displaced bicondylar fracture of left tibia, initial encounter for closed fracture; N39.0 Urinary tract infection, site not specified; E78.5 Hyperlipidemia, unspecified; E89.0 Postprocedural hypothyroidism; F32.9 Major depressive disorder, single episode, unspecified; F43.22 Adjustment disorder with anxiety; I10 Essential (primary) hypertension; J43.9 Emphysema, unspecified; K21.9 Gastro-esophageal reflux disease without esophagitis; R09.02 Hypoxemia; Z79.82 Long term (current) use of aspirin; Z79.899 Other long term (current) drug therapy; Z80.0 Family history of malignant neoplasm of digestive organs; Z82.5 Family history of asthma and other chronic lower respiratory diseases; Z87.891 Personal history of nicotine dependence; Z90.710 Acquired absence of both cervix and uterus; Z91.81 History of falling; Z79.890 Hormone replacement therapy; Z79.891 Long term (current) use of opiate analgesic; Z90.49 Acquired absence of other specified parts of digestive tract; B95.2 Enterococcus as the cause of diseases classified elsewhere
CPT/HCPCS: 36415; 71046; 71275; 80053; 81001; 82550; 82553; 83735; 84484; 85025; 85610; 85730; 87086; 93005; 96361; 96365; 96366; 96376; 99291